=== PATIENT | male | born 1985 | race Caucasian/White ===

== ENCOUNTER 2019-09-02 11:37 | Emergency (ER) | payer OTHER ==
[2019-09-02 11:42] VITALS: BP 142/87; PULSE 72; TEMP 98; BMI 34.7
--- NOTE | 2019-09-02 12:02 | PDOC ---
History of Present Illness - General Chief Complaint: Pain, Acute Stated Complaint: TESTICLE PAIN Time Seen by Provider: 09/02/19 11:43 History Source: Patient Exam Limitations: Clinical Condition - History of Present Illness Initial Comments: 09/02/19 11:58 Patient with no significant past medical history presented with complaint of a one-week history of right-sided testicular pain which has been worsening the past few days. Patient also reported pain with urination but denies urinary frequency or hematuria. Patient has not taken anything for symptoms or followed up until today Is this a multiple visit Asthma Patient?: No Timing/Duration: 1 week Past History - Past Medical History Allergies/Adverse Reactions: Allergies Allergy/AdvReac Type Severity Reaction Status Date / Time No Known Allergies Allergy Verified 09/02/19 11:42 COPD: No - Psycho Social/Smoking Cessation Hx Smoking History: Unknown if ever smoked Have you smoked in the past 12 months: No Information on smoking cessation initiated: No Hx Alcohol Use: No Drug/Substance Use Hx: No Review of Systems - Review of Systems Able to Perform ROS?: Yes Is the patient limited Cymraes proficient: No Constitutional: No: Chills, Fever, Malaise HEENTM: No: Symptoms Reported Respiratory: No: Symptoms reported Cardiac (ROS): No: Symptoms Reported ABD/GI: No: Symptoms Reported, Nausea, Vomiting : Yes: Symptoms Reported, See HPI, Burning, Dysuria, Pain (right groin pain), Testicular Pain. No: Discharge, Frequency, Flank Pain, Hematuria, Urgency, Testicular Mass, Testicular Swelling, Lesions Musculoskeletal: No: Symptoms Reported All Other Systems: Reviewed and Negative *Physical Exam - Vital Signs Last Vital Signs Temp Pulse Resp BP Pulse Ox 98.0 F 72 16 142/87 100 09/02/19 11:39 09/02/19 11:39 09/02/19 11:39 09/02/19 11:39 09/02/19 11:39 - Physical Exam General Appearance: Yes: Nourished, Appropriately Dressed, Mild Distress HEENT: positive: Normal ENT Inspection Neck: positive: Supple Respiratory/Chest: negative: Respiratory Distress, Accessory Muscle Use Gastrointestinal/Abdominal: positive: Normal Bowel Sounds, Flat. negative: Tender Male Genitalia: positive: normal genitalia, normal prostate, testicular tenderness (mild tenderness to right testicle and groin area). negative: discharge, testicular mass, epididymus tender, inguinal hernia, hematuria Musculoskeletal: positive: Normal Inspection. negative: CVA Tenderness Extremity: positive: Normal Inspection Integumentary: positive: Normal Color Neurologic: positive: Fully Oriented, Alert, Normal Mood/Affect, Normal Response ED Treatment Course - RADIOLOGY Radiology Studies Ordered: Category Date Time Status SCROTUM AND CONTENTS US [US] Stat Ultrasound 09/02/19 11:55 Ordered Medical Decision Making - Medical Decision Making 09/02/19 11:59 Patient with no significant past medical history presented with complaint of a one-week history of right-sided testicular pain which has been worsening the past few days. Patient also reported pain with urination but denies urinary frequency or hematuria. Patient has not taken anything for symptoms or followed up until today Exam significant for mild tenderness to left groin area with no scrotal swelling. No penile discharge or erythema to skin of testicles or penis. No inguinal hernia on exam. Symptoms likely cystitis versus STDs. UA, urine culture and urine gonorrhea and chlamydia tests ordered. Testicular ultrasound ordered to rule out acute pathology 09/02/19 12:36 Scrotal and testicular ultrasound unremarkable. Given patient complaint of a persistent symptom of a week, will treated patient empirically with ceftriaxone 250 mg IM and azithromycin 1 g p.o. for possible gonorrhea and chlamydia pending lab results Discharge - Discharge Information Problems reviewed: Yes Clinical Impression/Diagnosis: Testicular/scrotal pain Condition: Stable Disposition: HOME - Admission No - Follow up/Referral Referrals: Chito Harvey MD [Staff Physician] - - Patient Discharge Instructions Patient Printed Discharge Instructions: DI for Testicular Pain Additional Instructions: Your testicular ultrasound was normal and shows no acute pathology. Your symptoms could be caused by infection and you were treated today. Follow-up with referred urologist - Post Discharge Activity
[2019-09-02] MEDS ORDERED: AZITHROMYCIN 500 MG TABLET PO ONE (12:35)
[2019-09-02] MEDS ORDERED: AZITHROMYCIN 250 MG TABLET ONE (12:40)
[2019-09-02 12:42] LABS: EPI CELLS 0.5 /HPF (0-5/HPF); HYALINE CASTS 1 /lpf (0-8); URINE APPEARANCE CLEAR; URINE BACTERIA 3.6 /hpf (NEGATIVE); URINE BILIRUBIN NEGATIVE (NEGATIVE); URINE COLOR YELLOW; URINE GLUCOSE (UA) NEGATIVE (NEGATIVE); URINE KETONE NEGATIVE (NEGATIVE); URINE LEUK ESTERASE NEGATIVE (NEGATIVE); URINE NITRITE NEGATIVE (NEGATIVE); URINE PROTEIN NEGATIVE (NEGATIVE); URINE RBC 0 /hpf (0-4); URINE UROBILINOGEN 0.2 mg/dL (0.2-1.0); URINE WBC 0 /hpf (0-5)
== END 2019-09-02 12:50 | disposition home or self-care (01) ==
LOC: JERFT 11:37
DX: N50.811 Right testicular pain (principal); N50.82 Scrotal pain
CPT/HCPCS: 36415; 76870-TC; 81003; 87086; 87491; 87591; 96372; 99282-25